=== PATIENT | female | born 2000 | race Caucasian/White ===

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

== ENCOUNTER 2018-11-26 18:12 | Emergency (ER) | payer SELFPAY ==
[2018-11-26] MEDS ORDERED: ACETAMINOPHEN 325 MG TABLET PO ONE (19:13)
--- NOTE | 2018-11-26 19:28 | ER Document Report ---
ED Medical Screen (RME) - General Chief Complaint: Pelvic Pain Stated Complaint: PELVIN PAIN/PRESSURE, BACK PAIN Time Seen by Provider: 11/26/18 18:34 TRAVEL OUTSIDE OF THE [place] IN LAST 30 DAYS: No - HPI Patient complains to provider of: Pelvic pain and pressure, sinus congestion, low back pain Notes: 11/26/18 19:27 Patient is a 18-year-old female who is with previous secondary to failure to dilate, presenting to the emergency room today being approximately 20 weeks by dates and complaining of pelvic pain, low back pain and sinus congestion, she has not yet received care during this and has not yet had any ultrasound to confirm size and dates, she denies any vaginal bleeding or discharge, no nausea, vomiting or diarrhea RAPID MEDICAL EVALUATION DISCLOSURE I have seen this patient as part of a Rapid Medical Evaluation and, if applicable, placed any initially appropriate orders. The patient will be seen and fully evaluated, including a full history and physical exam, by a provider (in Main ED or Fast Track) when a room becomes available. - Related Data Allergies/Adverse Reactions: pineapple Allergy (Intermediate, Verified 11/26/18 18:53) Edema seafood Allergy (Intermediate, Uncoded 11/26/18 18:53) Edema Past Medical History - General Last Menstrual Period: - Social History Frequency of alcohol use: None Drug Abuse: None Pulmonary Medical History: Reports: Hx Asthma - as a child Renal/ Medical History: Denies: Hx Peritoneal Dialysis Past Surgical History: Reports: Hx Section Physical Exam - Vital signs Vitals: Temp Pulse Resp BP Pulse Ox 98.2 F 87 18 106/57 L 100 11/26/18 18:15 11/26/18 18:15 11/26/18 18:15 11/26/18 18:15 11/26/18 18:15 Course - Vital Signs Vital signs: Temp Pulse Resp BP Pulse Ox 98.2 F 87 18 106/57 L 100 11/26/18 18:15 11/26/18 18:15 11/26/18 18:15 11/26/18 18:15 11/26/18 18:15
[2018-11-26 19:36] LABS: ABSOLUTE LYMPHOCYTES (AUTO) 2.1 10^3/uL (0.5-4.7); ABSOLUTE MONOCYTES (AUTO) 0.7 10^3/uL (0.1-1.4); ABSOLUTE NEUT (AUTO) 7.6 10^3/uL (1.7-8.2); BASOPHILS % (AUTO) 0.3 % (0-2); EOSINOPHILS % (AUTO) 0.1 % (0-6); HEMATOCRIT 33.4 % (36.0-47.0); HEMOGLOBIN 11.5 g/dL (12.0-15.5); LYMPHOCYTES % (AUTO) 20.3 % (13-45); MEAN CORPUSCULAR HEMOGLOBIN 32.3 pg (27.0-33.4); MEAN CORPUSCULAR HGB CONC 34.5 g/dL (32.0-36.0); MEAN CORPUSCULAR VOLUME 94 fl (80-97); MONOCYTES % (AUTO) 6.3 % (3-13); PLATELET COUNT 200 10^3/uL (150-450); RED BLOOD COUNT 3.57 10^6/uL (3.72-5.28); RED CELL DISTRIBUTION WIDTH 13.5 % (11.5-14.0); TOTAL CELLS COUNTED % (AUTO) 100 %; WHITE BLOOD COUNT 10.5 10^3/uL (4.0-10.5)
[2018-11-26 19:42] LABS: APPEARANCE,URINE SLIGHTLY-CLOUDY; BILIRUBIN,URINE NEGATIVE (NEGATIVE); COLOR,URINE YELLOW; GLUCOSE, URINE NEGATIVE (NEGATIVE); KETONES,URINE 80 mg/dL (NEGATIVE); LEUKOCYTE ESTERASE,URINE NEGATIVE (NEGATIVE); NITRITE,URINE NEGATIVE (NEGATIVE); PROTEIN,URINE NEGATIVE (NEGATIVE); URINE SPECIFIC GRAVITY 1.023
[2018-11-26 19:51] LABS: ALANINE AMINOTRANSFERASE 9 U/L (9-52); ALBUMIN 3.9 g/dL (3.5-5.0); ALKALINE PHOSPHATASE 112 U/L (38-126); ANION GAP 8 (5-19); ASPARTATE AMINO TRANSFERASE 17 U/L (14-36); BILIRUBIN,DIRECT 0.2 mg/dL (0.0-0.4); BILIRUBIN,TOTAL 0.4 mg/dL (0.2-1.3); BLOOD UREA NITROGEN 7 mg/dL (7-20); CARBON DIOXIDE 25 mmol/L (22-30); CHLORIDE 106 mmol/L (98-107); GLUCOSE 72 mg/dL (75-110); SODIUM 139.1 mmol/L (137-145); TOTAL PROTEIN 6.8 g/dL (6.3-8.2)
--- NOTE | 2018-11-26 20:00 | ER Document Report ---
ED GI/ - General Chief Complaint: Pelvic Pain Stated Complaint: PELVIN PAIN/PRESSURE, BACK PAIN Time Seen by Provider: 11/26/18 18:34 Mode of Arrival: Ambulatory Information source: Patient Notes: 18-year-old female presents to ED for complaint of pelvic pain cough cold congestion low back pain. She states she is about 20 weeks . She is 2 para 1. She states she has not had any care. She states her last regular period was in May but she did have a different period in July. She states in June she took a home test which was positive in July she took one which was negative in August she took one which was positive in September she had a positive one so October [facility] and they did a test and told her she was positive. She states they did not do any blood work or ultrasounds at that time. She denies any vaginal bleeding nausea vomiting or discharge. Patient states she is actually not having any pain at this moment after taken Tylenol in the front. TRAVEL OUTSIDE OF THE [place] IN LAST 30 DAYS: No - HPI Patient complains to provider of: Pelvic pain, Onset: This morning Timing/Duration: Intermittent, Gone Quality of pain: No pain Pain Level: Denies Location: Pelvis Vaginal bleeding (Compared to normal period): None - No pain at this time Menstrual period history: LMP: She had some sort of a period in July and one in May but not sure whi Associated symptoms: Other - Exacerbated by: Denies Relieved by: Denies Similar symptoms previously: Yes Recently seen / treated by doctor: Yes - Related Data Allergies/Adverse Reactions: pineapple Allergy (Intermediate, Verified 11/26/18 18:53) Edema seafood Allergy (Intermediate, Uncoded 11/26/18 18:53) Edema Past Medical History - General Information source: Patient Last Menstrual Period: - Social History Smoking Status: Former Smoker - States she was smoking heavily in May so she gradually herself down and quit in September Frequency of alcohol use: None Drug Abuse: None Lives with: Spouse/Significant other Family History: Reviewed & Not Pertinent Patient has suicidal ideation: No Patient has homicidal ideation: No - Past Medical History Cardiac Medical History: Reports: None Pulmonary Medical History: Reports: Hx Asthma - as a child EENT Medical History: Reports: None Neurological Medical History: Reports: None Endocrine Medical History: Reports: None Renal/ Medical History: Reports: None Malignancy Medical History: Reports: None GI Medical History: Reports: None Musculoskeletal Medical History: Reports None Skin Medical History: Reports None Psychiatric Medical History: Reports: Hx Attention Deficit Hyperactivity Disorder, Hx Bipolar Disorder, Hx Obsessive Compulsive Disorder, Hx Post Traumatic Stress Disorder Traumatic Medical History: Reports: None Infectious Medical History: Reports: None Past Surgical History: Reports: Hx Section - Immunizations Immunizations up to date: Yes Review of Systems - Review of Systems Constitutional: No symptoms reported EENT: No symptoms reported Cardiovascular: No symptoms reported Respiratory: No symptoms reported Gastrointestinal: Abdominal pain Genitourinary: No symptoms reported Female Genitourinary: Musculoskeletal: No symptoms reported Skin: No symptoms reported Hematologic/Lymphatic: No symptoms reported Neurological/Psychological: No symptoms reported -: Yes All other systems reviewed and negative Physical Exam - Vital signs Vitals: Temp Pulse Resp BP Pulse Ox 98.2 F 87 18 106/57 L 100 11/26/18 18:15 11/26/18 18:15 11/26/18 18:15 11/26/18 18:15 11/26/18 18:15 Interpretation: Normal - General General appearance: Appears well, Alert - HEENT Head: Normocephalic, Atraumatic Eyes: Normal Pupils: PERRL - Respiratory Respiratory status: No respiratory distress Chest status: Nontender Breath sounds: Normal Chest palpation: Normal - Cardiovascular Rhythm: Regular Heart sounds: Normal auscultation Murmur: No - Abdominal Inspection: Gravid female Distension: No distension Bowel sounds: Normal Tenderness: Nontender. No: Tender Organomegaly: No organomegaly - Back Back: Normal, Nontender - Extremities General upper extremity: Normal inspection, Nontender, Normal color, Normal ROM, Normal temperature General lower extremity: Normal inspection, Nontender, Normal color, Normal ROM, Normal temperature, Normal weight bearing. No: Angelica's sign - Neurological Neuro grossly intact: Yes Cognition: Normal Orientation: AAOx4 Meta Coma Scale Eye Opening: Spontaneous Bala Coma Scale Verbal: Oriented Bala Coma Scale Motor: Obeys Commands Meta Coma Scale Total: 15 Speech: Normal Motor strength normal: LUE, RUE, LLE, RLE Sensory: Normal - Psychological Associated symptoms: Normal affect, Normal mood - Skin Skin Temperature: Warm Skin Moisture: Dry Skin Color: Normal Course - Re-evaluation Re-evalutation: 11/27/18 02:28 Patient was advised to stay for her results of her ultrasound as she came him with abdominal pain with . She states she did not know how forced preg nant she was but she knew that she had a positive in July. Patient told me that she would stay and then when I was not at the desk she told the nurse she needed to leave because her ride was going to leave her. She stated to the nurse that she was no longer having any abdominal pain. Results showed a normal intrauterine at 25 weeks 6 days. - Vital Signs Vital signs: Temp Pulse Resp BP Pulse Ox 98 F 70 16 108/61 100 11/26/18 22:12 11/26/18 22:12 11/26/18 22:12 11/26/18 22:12 11/26/18 22:12 - Laboratory Result Diagrams: 11/26/18 19:21 11/26/18 19:21 Laboratory results interpreted by me: 11/26/18 11/26/18 11/26/18 19:21 19:21 19:21 RBC 3.57 L Hgb 11.5 L Hct 33.4 L Creatinine 0.39 L Glucose 72 L Beta HCG, Quant 44696.00 H Urine Ketones 80 H Urine Urobilinogen 4.0 H - Diagnostic Test Radiology reviewed: Image reviewed, Reports reviewed Discharge - Discharge Clinical Impression: Abdominal pain affecting Disposition: AGAINST MEDICAL ADVICE
[2018-11-26 22:13] VITALS: BP 108/61
--- NOTE | 2018-11-26 22:15 | RADIOLOGY REPORT (SQ) ---
EXAM DESCRIPTION: US FOLLOW UP COMPLETED DATE/TME: 11/26/2018 19:11 CLINICAL HISTORY: 18 years, Female, , pelvic pain COMPARISON: EXAM DESCRIPTION: CLINICAL HISTORY: , pelvic pain COMPARISON: None. FINDINGS: [Transabdominal ] [percent] images of the pelvis were submitted. Single live IUP is present. ANYA is 16.1 cm, normal. Placenta is anterior. Presentation is vertex. Estimated gestational age by ultrasound 25 weeks six days, HOLDEN 03/05/2019. heart rate 141 bpm. Cervix length is 32 mm. No anatomic abnormality is identified. Estimated weight 878 g. Femur length 4.8 cm. IMPRESSION: Single live IUP as above. No anomaly is identified.
== END 2018-11-26 22:13 | disposition left against medical advice (07) ==
LOC: ER 18:12
DX: O26.92 Pregnancy related conditions, unspecified, second trimester (principal); R10.9 Unspecified abdominal pain; M54.9 Dorsalgia, unspecified; M54.5 Low back pain; Z3A.20 20 weeks gestation of pregnancy
CPT/HCPCS: 36415; 76805; 80053; 81001; 84702; 85025; 86900; 86901; 87086; 99284

== ENCOUNTER 2019-03-12 10:03 | Inpatient (IN) | payer MEDICAID ==
[2019-03-12] MEDS ORDERED: RINGERS SOLUTION,LACTATED 1,000 ML IV ONE (10:20)
[2019-03-12] MEDS ORDERED: CEFAZOLIN 2 GM/D5W RTU 2 GM/50 ML RTUPB IV PRN (10:53)
[2019-03-12 11:00] LABS: APPEARANCE,URINE CLOUDY; BILIRUBIN,URINE NEGATIVE (NEGATIVE); COLOR,URINE YELLOW; GLUCOSE, URINE NEGATIVE (NEGATIVE); KETONES,URINE TRACE mg/dL (NEGATIVE); LEUKOCYTE ESTERASE,URINE NEGATIVE (NEGATIVE); NITRITE,URINE NEGATIVE (NEGATIVE); PROTEIN,URINE 100 mg/dL (NEGATIVE); URINE SPECIFIC GRAVITY 1.019
[2019-03-12 11:05] LABS: ABSOLUTE LYMPHOCYTES (AUTO) 1.1 10^3/uL (0.5-4.7); ABSOLUTE MONOCYTES (AUTO) 0.6 10^3/uL (0.1-1.4); ABSOLUTE NEUT (AUTO) 5.3 10^3/uL (1.7-8.2); BASOPHILS % (AUTO) 0.3 % (0-2); EOSINOPHILS % (AUTO) 0.1 % (0-6); HEMATOCRIT 30.9 % (36.0-47.0); HEMOGLOBIN 10.3 g/dL (12.0-15.5); LYMPHOCYTES % (AUTO) 15.2 % (13-45); MEAN CORPUSCULAR HEMOGLOBIN 29.1 pg (27.0-33.4); MEAN CORPUSCULAR HGB CONC 33.4 g/dL (32.0-36.0); MEAN CORPUSCULAR VOLUME 87 fl (80-97); MONOCYTES % (AUTO) 8.9 % (3-13); PLATELET COUNT 121 10^3/uL (150-450); RED BLOOD COUNT 3.56 10^6/uL (3.72-5.28); RED CELL DISTRIBUTION WIDTH 17.3 % (11.5-14.0); SEGMENTED NEUTROPHILS % (AUTO) 75.5 % (42-78); TOTAL CELLS COUNTED % (AUTO) 100 %; WHITE BLOOD COUNT 7.1 10^3/uL (4.0-10.5)
[2019-03-12 11:07] LABS: URINE AMPHETAMINES SCREEN NEGATIVE; URINE BARBITURATES SCREEN NEGATIVE; URINE BENZODIAZEPINES SCREEN NEGATIVE; URINE COCAINE SCREEN NEGATIVE; URINE METHADONE SCREEN NEGATIVE; URINE PHENCYCLIDINE SCREEN NEGATIVE
[2019-03-12 11:12] LABS: URINE MARIJUANA (THC) SCREEN UNCONFIRMED POSITIVE
[2019-03-12] MEDS: RINGERS SOLUTION,LACTATED 1,000 ML IV PRN (11:50)
[2019-03-12] MEDS ORDERED: CEFAZOLIN SODIUM 2 GM in DEXTROSE 5%-WATER 50 ML IV PRN (12:00)
[2019-03-12 12:20] LABS: CHLAM PCR NOT DETECTED (NOT DETECT); GON PCR NOT DETECTED (NOT DETECT)
[2019-03-12] MEDS ORDERED: FENTANYL CITRATE INJ/PF 100 MCG/2 ML AMPUL ONE (13:21)
[2019-03-12] MEDS ORDERED: OXYTOCIN 10 UNIT/ML VIAL ONE (13:21)
[2019-03-12] MEDS ORDERED: EPHEDRINE SULFATE INJ 50 MG/1 ML AMPULE ONE (13:22)
[2019-03-12] MEDS ORDERED: ACETAMINOPHEN 1,000 MG/100 ML RTUPB IV ONE (13:22)
[2019-03-12] MEDS ORDERED: MIDAZOLAM 2 MG/2 ML INJ ONE (13:22)
[2019-03-12] MEDS ORDERED: DIPHENHYDRAMINE HCL 50 MG/ML VIAL IV PRN (14:15)
[2019-03-12] MEDS ORDERED: MORPHINE SULFATE 10 MG/ML INJ IV PRN (14:15)
[2019-03-12] MEDS ORDERED: OXYCODONE-ACETAMINOPHEN 5-325 MG TABLET PO PRN ×3 (14:15→17:23)
[2019-03-12] MEDS ORDERED: PROMETHAZINE HCL INJ 25 MG/1 ML VIAL IV PRN ×3 (14:15→17:23)
[2019-03-12] MEDS ORDERED: MEPERIDINE HCL/PF INJ 25 MG/1 ML DISP.SYRIN IV PRN (14:15)
[2019-03-12] MEDS ORDERED: FENTANYL CITRATE INJ/PF 100 MCG/2 ML AMPUL IV PRN ×3 (14:15)
[2019-03-12] MEDS ORDERED: ONDANSETRON HCL INJ/PF 4 MG/2 ML SDV IV PRN (14:15)
[2019-03-12] MEDS ORDERED: KETOROLAC TROMETHAMINE INJ/PF 30 MG/1 ML SDV ONE (14:54)
--- NOTE | 2019-03-12 15:10 | Brief Operative Note ---
BRIEF OPERATIVE REPORT DATE OF SURGERY: 03/12/19 TIME OF SURGERY: 02:30 PREOPERATIVE DIAGNOSIS: PUND at 41+0ega, H/o Section, Desires Repeat Section, Suspected Macrosomia, Gestational Thrombocytopenia POSTOPERATIVE DIAGNOSIS: JOSE ANGEL - delivered SURGEON: PONCHO MERA FINDINGS: VFI delivered at 1354 on 03/12, Weight 8#1oz, Apgars 8/9. Normal Bilateral Tubes and ovaries. Very thin scar in lower uterine segment. UOP 50ml, IVF 600ml COMPLICATIONS: None ESTIMATED BLOOD LOSS: 540ml TISSUE REMOVED OR ALTERED: placenta and cord not sent to pathology TECHNICAL PROCEDURE: Repeat Section
--- NOTE | 2019-03-12 15:12 | PDOC DELIVERY SUMMARY ---
Delivery Summary - Maternal Hx : IV Hx Para: I Hx # Term Pregnancies: 1 Hx # Pregnancies: 0 Hx Total # of Abortions (Sponateous & Elective): 2 Number of Living Children: 1 HOLDEN: 03/05/19 Gestational Age: 41 weeks Risk Factors: Previous Risk Factors/Complications Other:: anxiety, h/o section, desires repeat section Ruptured Membranes: AROM Time of Rupture: 13:54 Fluids: Clear Fluid Description: clear - Delivery Presentation: Vertex Heart Rate Monitoring: Done Pre-Operatively Uterine Contraction Monitoring: External Support Person Present: Yes Location: LD : Scheduled Placenta: Within Normal Limits Placenta Description: normal Number of Vessels (Cord): 3 Nuchal Cord: Yes Delivery of Placenta Date: 03/12/19 Delivery of Placenta Time: 13:56 Delivery Quantitative Blood Loss (QBL): 540 - Medications Type of Anesthesia:: Spinal - Infant Assess and Care Baby 1 Female Delivery of Date: 03/12/19 Delivery of Time: 13:54 at 1 minute: 8 at 5 minutes: 9 Preprinted Number On Band: [id number] Infant Skin to Skin: No To Nursery At: 14:05 Mode of Transport: Bassinet Infant Delivery Weight: 3,645 Infant Delivery Length: 20.5 in - Delivery Personnel Telephone Operator Chief: FOZIA Hutchinson RN: KEL PEREZ RN: AUGUSTUS DICKERSON MD: PONCHO MERA
--- NOTE | 2019-03-12 15:12 | Operative Report ---
Operative Report DATE OF SURGERY: 03/12/19 PREOPERATIVE DIAGNOSIS: PUND at 41+0ega, H/o Section, Desires Repeat C esarean Section, Suspected Macrosomia, Gestational Thrombocytopenia POSTOPERATIVE DIAGNOSIS: JOSE ANGEL - delivered OPERATION: Repeat Section SURGEON: PONCHO MERA ANESTHESIA: Spinal TISSUE REMOVED OR ALTERED: placenta and cord not sent to pathology ESTIMATED BLOOD LOSS: 540ml INTRAOPERATIVE FINDINGS: VFI delivered at 1354 on 03/12, Weight 8#1oz, Apgars 8/9. Normal Bilateral Tubes and ovaries. Very thin scar in lower uterine segment. UOP 50ml, IVF 600ml PROCEDURE: Anesthesia: Spinal Anesthesia provider: [Edson CARLSON, Kiersten Sadler CRNA] Urine output: [50ml] IV fluids: [600ml] Indications: [18yo at 41+0ega presents for scheduled section due to history of prior section. She initially desired TOLAC but decided since she did not go in to labor on her own she would have a repeat section instead on induction of labor. She reports that she is done having children and her fiance is planning on a vasectomy. She desires Ortho Evra patch for contraception . Reviewed the risks, benefits and alternatives to repeat section and she desires Repeat section. ] Procedure: The patient was taken to the operating room where spinal anesthesia was obtained and found to be adequate. She was then prepped and draped in the normal sterile fashion and placed in the dorsal supine position with a leftward tilt. A Pfannenstiel skin incision was then made and carried through to the underlying layers of the fascia with the scalpel. The fascia was incised in the midline and the incision extended laterally with the Duffy scissors. The superior aspect of the fascial incision was then grasped with Lianet clamps elevated and the underlying rectus muscles dissected off [bluntly]. Attention was then turned to the inferior aspect of the fascial incision which in a similar fashion was grasped, tented up with Lianet clamps, and the rectus muscles dissected off [bluntly]. The rectus muscles were then in the midline and the peritoneum at the amount identified and entered [bluntly]. The peritoneal incision was then extended superiorly and inferiorly with good visualization of the bladder. The bladder blade was inserted and the vesicouterine peritoneum identified grasped with Romanian pickups and entered sharply with the Metzenbaum scissors. This incision was then extended laterally with the Metzenbaum scissors and a bladder flap created digitally. The bladder blade was then reinserted and the lower uterine segment incised in a transverse fashion with the scalpel. The uterine incision was then extended bluntly. The bladder blade was removed and the infant's head was delivered from cephalic presentation atraumatically. The nose and mouth were suctioned and the cord doubly clamped and cut. And the infant was handed off to waiting pediatricians. The placenta was then delivered spontaneously and the uterus exteriorized and cleared of all clots and debris. The uterine incision was then repaired with 1- 0 Vicryl in a running locked fashion. A second layer of the same suture was used to obtain hemostasis via imbrication of the initial layer. The bladder flap was then repaired with 3-0 chromic in a running fashion. The uterus was returned to the patient's abdomen. The gutters were cleared of all clots and debris. All operative sites were noted to be hemostatic. The fascia was reapproximated with 0 Vicryl in a running fashion from each lateral edge to the midline. The skin was closed with 3-0 Monocryl in a running subcuticular fashion with overlying Dermabond for additional dressing as well as wound closure. The patient tolerated the procedure well. Sponge lap needle and instrument counts are correct times 2. 2 g of Ancef were given prior to skin incision. The patient was taken to the recovery area awake and in stable condition.
[2019-03-12] MEDS ORDERED: HYDROMORPHONE HCL INJ/PF 2 MG/ML AMPULE ONE (16:10)
[2019-03-12] MEDS ORDERED: OXYTOCIN/NORMAL SALINE 20 UNIT/1,000 ML RTUINJ ONE (16:53)
[2019-03-12] MEDS ORDERED: DIPH/PERTUSS(ACELL)/TETANUS VAC/PF 0.5 ML SYR (>=10YO) IM PRN (17:23)
[2019-03-12] MEDS ORDERED: ACETAMINOPHEN 1,000 MG/100 ML RTUPB IV PRN (17:23)
[2019-03-12] MEDS ORDERED: OXYTOCIN/NORMAL SALINE 20 UNIT/1,000 ML RTUINJ IV PRN (17:23)
[2019-03-12] MEDS ORDERED: MEASLES,MUMPS&RUBELLA VACC/PF 0.5 ML VIAL SUBCUT PRN (17:23)
[2019-03-12] MEDS ORDERED: SIMETHICONE 80 MG TAB.CHEW PO PRN (17:23)
[2019-03-12] MEDS ORDERED: ACETAMINOPHEN 325 MG TABLET PO PRN (17:23)
[2019-03-12] MEDS ORDERED: NIFEDIPINE 30 MG TAB.ER.24 PO ONE (17:45)
[2019-03-12] MEDS ORDERED: NIFEDIPINE 30 MG TAB.ER.24 PO SCH (18:30)
[2019-03-12 18:32] LABS: ABSOLUTE LYMPHOCYTES (AUTO) 1.4 10^3/uL (0.5-4.7); ABSOLUTE MONOCYTES (AUTO) 0.6 10^3/uL (0.1-1.4); ABSOLUTE NEUT (AUTO) 7.7 10^3/uL (1.7-8.2); BASOPHILS % (AUTO) 0.3 % (0-2); HEMATOCRIT 31.7 % (36.0-47.0); HEMOGLOBIN 10.4 g/dL (12.0-15.5); LYMPHOCYTES % (AUTO) 14.5 % (13-45); MEAN CORPUSCULAR HEMOGLOBIN 28.6 pg (27.0-33.4); MEAN CORPUSCULAR HGB CONC 32.8 g/dL (32.0-36.0); MEAN CORPUSCULAR VOLUME 87 fl (80-97); MONOCYTES % (AUTO) 6.6 % (3-13); PLATELET COUNT 128 10^3/uL (150-450); RED BLOOD COUNT 3.64 10^6/uL (3.72-5.28); RED CELL DISTRIBUTION WIDTH 17.8 % (11.5-14.0); SEGMENTED NEUTROPHILS % (AUTO) 78.6 % (42-78); TOTAL CELLS COUNTED % (AUTO) 100 %; WHITE BLOOD COUNT 9.8 10^3/uL (4.0-10.5)
[2019-03-12] MEDS: HYDROMORPHONE HCL INJ/PF 2 MG/ML AMPULE IV PRN (18:36)
[2019-03-12] MEDS: DOCUSATE SODIUM 100 MG CAPSULE PO SCH (18:37)
[2019-03-12 18:46] LABS: ALANINE AMINOTRANSFERASE 13 U/L (9-52); ALBUMIN 2.7 g/dL (3.5-5.0); ALKALINE PHOSPHATASE 256 U/L (38-126); ANION GAP 9 (5-19); ASPARTATE AMINO TRANSFERASE 18 U/L (14-36); BILIRUBIN,DIRECT 0.2 mg/dL (0.0-0.4); BILIRUBIN,TOTAL 0.5 mg/dL (0.2-1.3); BLOOD UREA NITROGEN 7 mg/dL (7-20); CALCIUM 8.8 mg/dL (8.4-10.2); CARBON DIOXIDE 22 mmol/L (22-30); CHLORIDE 106 mmol/L (98-107); SODIUM 136.8 mmol/L (137-145); URIC ACID 3.7 mg/dL (2.5-6.2)
[2019-03-12 18:52] LABS: GLUCOSE 61 mg/dL (75-110)
[2019-03-12] MEDS ORDERED: PHENYLEPHRINE HCL INJ/PF 10 MG/1 ML SDV ONE (19:09)
[2019-03-12] MEDS: KETOROLAC TROMETHAMINE INJ/PF 30 MG/1 ML SDV IV SCH (21:20)
[2019-03-12] MEDS: OXYCODONE-ACETAMINOPHEN 5-325 MG TABLET PO PRN (23:48)
[2019-03-13] MEDS: HYDROMORPHONE HCL INJ/PF 2 MG/ML AMPULE IV PRN ×2 (00:52→20:14)
[2019-03-13] MEDS: RINGERS SOLUTION,LACTATED 1,000 ML IV PRN (00:52)
[2019-03-13] MEDS: KETOROLAC TROMETHAMINE INJ/PF 30 MG/1 ML SDV IV SCH ×2 (05:28→13:10)
[2019-03-13] MEDS: OXYCODONE-ACETAMINOPHEN 5-325 MG TABLET PO PRN ×4 (06:03→18:43)
[2019-03-13 07:21] LABS: HEMATOCRIT 27.7 % (36.0-47.0); HEMOGLOBIN 9.3 g/dL (12.0-15.5); MEAN CORPUSCULAR HGB CONC 33.5 g/dL (32.0-36.0); MEAN CORPUSCULAR VOLUME 87 fl (80-97); PLATELET COUNT 160 10^3/uL (150-450); RED BLOOD COUNT 3.19 10^6/uL (3.72-5.28); RED CELL DISTRIBUTION WIDTH 18.4 % (11.5-14.0); WHITE BLOOD COUNT 12.6 10^3/uL (4.0-10.5)
[2019-03-13] MEDS: PRENATAL VITAMIN W DHA CAPSULE PO SCH (09:34)
[2019-03-13] MEDS: DOCUSATE SODIUM 100 MG CAPSULE PO SCH ×2 (09:34→16:59)
--- NOTE | 2019-03-13 11:50 | Progress Note ---
Provider Note Provider Note: called by RN to assess cough. pt states she has had cough for "a few days, but worse today." hx asthma. chunky yellow sputum, lungs clear on right. left side with ronchi in lower herron. meds ordered
--- NOTE | 2019-03-13 11:53 | PDOC PROGRESS REPORT ---
Subjective-OB Progress Note for:: 03/13/19 Subjective: see other note, reports bleeding slowing, + passing gas Physical Exam (OB) Vital Signs: Temp Pulse Resp BP Pulse Ox 98.9 F 94 16 103/63 98 03/13/19 07:31 03/13/19 07:31 03/13/19 07:31 03/13/19 07:31 03/13/19 07:31 Intake & Output 03/12/19 03/13/19 03/14/19 06:59 06:59 06:59 Intake Total 1470 Output Total 650 Balance 820 Weight 64.77 kg - Dressing Removed: No Incision: Well Approximated Closure Type: Steri-Strips - Abdomen Description: Tender, Soft, Round Hernia Present: No Fundal Description: Firm, Midline Fundal Height: u/u - u/2 - Abdominal Distension: No distension - Extremities Lower extremities: Angelica's sign - neg Calf: Normal, Nontender Objective-Diagnostic Laboratory: 03/13/19 07:13 03/12/19 18:18 03/12/19 03/12/19 03/13/19 18:18 18:18 07:13 WBC 9.8 12.6 H RBC 3.64 L 3.19 L Hgb 10.4 L 9.3 L Hct 31.7 L 27.7 L MCV 87 87 MCH 28.6 29.0 MCHC 32.8 33.5 RDW 17.8 H 18.4 H Plt Count 128 L 160 Seg Neutrophils % 78.6 H Lymphocytes % 14.5 Monocytes % 6.6 Eosinophils % 0.0 Basophils % 0.3 Absolute Neutrophils 7.7 Absolute Lymphocytes 1.4 Absolute Monocytes 0.6 Absolute Eosinophils 0.0 Absolute Basophils 0.0 Sodium 136.8 L Potassium 4.0 Chloride 106 Carbon Dioxide 22 Anion Gap 9 BUN 7 Creatinine 0.44 L Est GFR ( Amer) > 60 Est GFR (Non-Af Amer) > 60 Glucose 61 L Uric Acid 3.7 Calcium 8.8 Total Bilirubin 0.5 AST 18 ALT 13 Alkaline Phosphatase 256 H Total Protein 5.0 L Albumin 2.7 L Assessment and Plan(PN) - Assessment and Plan (1) History of delivery Is this a current diagnosis for this admission?: Yes (2) S/P repeat low transverse Is this a current diagnosis for this admission?: Yes - Time Spent with Patient Time with patient: Less than 15 minutes Medications reviewed and adjusted accordingly: Yes - Disposition Anticipated Discharge: Home Within: within 24 hours
[2019-03-13] MEDS ORDERED: GUAIFENESIN/D-METHORPHAN (200-20 MG) SYRUP 10 ML PO PRN (13:00)
[2019-03-13] MEDS: AMOXICILLIN TR/POT CLAVULANATE 500-125 MG TAB PO SCH ×2 (13:23→17:33)
[2019-03-13] MEDS: ALBUTEROL SULFATE HFA (90 MCG/PUFF) 200 PUFF/8.5 GM MDI IH SCH ×3 (13:24→23:29)
[2019-03-13] MEDS ORDERED: PROMETHAZINE HCL INJ 25 MG/1 ML VIAL IV PRN (15:30)
[2019-03-13] MEDS ORDERED: DIPH/PERTUSS(ACELL)/TETANUS VAC/PF 0.5 ML SYR (>=10YO) IM PRN (15:30)
[2019-03-13] MEDS ORDERED: MEASLES,MUMPS&RUBELLA VACC/PF 0.5 ML VIAL SUBCUT PRN (15:30)
[2019-03-13] MEDS ORDERED: BENZOCAINE/MENTHOL SORE THROAT LOZENGE BUCCAL PRN (16:44)
[2019-03-13] MEDS: BENZOCAINE/MENTHOL SORE THROAT LOZENGE BUCCAL PRN (17:33)
[2019-03-13] MEDS ORDERED: IBUPROFEN 800 MG TABLET ONE (19:53)
[2019-03-13] MEDS: IBUPROFEN 800 MG TABLET PO SCH (20:20)
[2019-03-14] MEDS: BENZOCAINE/MENTHOL SORE THROAT LOZENGE BUCCAL PRN ×2 (00:46→07:33)
[2019-03-14] MEDS: IBUPROFEN 800 MG TABLET PO SCH ×2 (03:36→11:13)
[2019-03-14] MEDS: ALBUTEROL SULFATE HFA (90 MCG/PUFF) 200 PUFF/8.5 GM MDI IH SCH (03:37)
[2019-03-14] MEDS ORDERED: ALBUTEROL SULFATE HFA (90 MCG/PUFF) 200 PUFF/8.5 GM MDI IH SCH ×2 (04:00→10:00)
[2019-03-14] MEDS: OXYCODONE-ACETAMINOPHEN 5-325 MG TABLET PO PRN (07:34)
--- NOTE | 2019-03-14 09:31 | PDOC DISCHARGE SUMMARY ---
Final Diagnosis Discharge Date: 03/14/19 - POD #2, doing well, up ambulating in the room, no complaints, A+ Rubella Immune, breast and bottle feeding. s/p Rpt , desires to go home today - Final Diagnosis (1) Cannabis use disorder, mild, abuse Is this a current diagnosis for this admission?: Yes (2) Gestational thrombocytopenia without hemorrhage Is this a current diagnosis for this admission?: Yes (3) History of delivery Is this a current diagnosis for this admission?: Yes (5) S/P repeat low transverse Is this a current diagnosis for this admission?: Yes Discharge Data - Discharge Medication Prescriptions: Ibuprofen [Motrin 800 mg Tablet] 800 mg PO Q6A #60 tablet Oxycodone HCl/Acetaminophen [Percocet 5-325 mg Tablet] 1 tab PO Q4HP PRN #30 tablet PRN Reason: Pain Scale Of 3 Home Medications: Ibuprofen [Motrin 800 mg Tablet] 800 mg PO Q6A #60 tablet 03/14/19 Oxycodone HCl/Acetaminophen [Percocet 5-325 mg Tablet] 1 tab PO Q4HP PRN #30 tablet 03/14/19 Reason(s) for Admission: Ceasarean Section-Repeat Procedures: Ultrasound Intrapartum Procedure(s): : Low Cervical, Transverse - Diagnosis Test Laboratory: Temp Pulse Resp BP Pulse Ox 98.5 F 95 17 125/84 100 03/14/19 07:37 03/14/19 07:37 03/14/19 07:37 03/14/19 07:37 03/14/19 07:37 03/12/19 03/12/19 03/12/19 10:20 10:49 18:18 RBC 3.56 L 3.64 L Hgb 10.3 L 10.4 L Hct 30.9 L 31.7 L Urine Opiates Screen NEGATIVE 03/13/19 07:13 RBC 3.19 L Hgb 9.3 L Hct 27.7 L Urine Opiates Screen - Discharge information/Instructions Discharge Activity: Activity As Tolerated, No Driving, No Lifting Over 10 Pounds, Pelvic Rest Discharge Diet: As Tolerated, Regular Disposition: HOME, SELF-CARE Follow up with: [facility] in: 1, Weeks - for incision check
[2019-03-14] MEDS: PRENATAL VITAMIN W DHA CAPSULE PO SCH (11:12)
[2019-03-14] MEDS: DOCUSATE SODIUM 100 MG CAPSULE PO SCH (11:13)
[2019-03-14] MEDS: AMOXICILLIN TR/POT CLAVULANATE 500-125 MG TAB PO SCH (11:13)
[2019-03-14 13:29] VITALS: BP 119/81
== END 2019-03-14 14:37 | disposition home or self-care (01) | DRG 787 ==
LOC: 2S 10:03 → EDSTATUS 12:15
PROVIDERS: ADMIT Student in an Organized Health Care Education/Training Program; ATTEND Student in an Organized Health Care Education/Training Program
PROC: 4A1HXCZ Monitoring of Products of Conception, Cardiac Rate, External Approach (ICD-10-PCS; 2019-03-12)
PROC: 10D00Z1 Extraction of Products of Conception, Low, Open Approach (ICD-10-PCS; principal; 2019-03-12 12:15)
DX: O48.0 Post-term pregnancy (principal); O99.324 Drug use complicating childbirth; O99.12 Other diseases of the blood and blood-forming organs and certain disorders involving the immune mechanism complicating childbirth; O34.211 Maternal care for low transverse scar from previous cesarean delivery; F12.10 Cannabis abuse, uncomplicated; D69.6 Thrombocytopenia, unspecified; F90.9 Attention-deficit hyperactivity disorder, unspecified type; F31.9 Bipolar disorder, unspecified; F43.10 Post-traumatic stress disorder, unspecified; O99.344 Other mental disorders complicating childbirth; O36.63X0 Maternal care for excessive fetal growth, third trimester, not applicable or unspecified; Z87.891 Personal history of nicotine dependence; Z3A.41 41 weeks gestation of pregnancy; Z37.0 Single live birth
CPT/HCPCS: 1961; 36415; 59025; 80053; 80307; 80349; 81001; 82962; 83615; 84550; 85025; 85027; 86850; 86900; 86901; 87491; 87591; 94799; C1765; G0480; J0131; J1170; J1885; J2250; J2370; J2590; J3010; J3490; J7120